=== PATIENT | female | born 1985 | race Caucasian/White ===

== ENCOUNTER 2024-04-27 08:28 | Emergency (ER) | payer MEDICAID, SELFPAY ==
[2024-04-27 08:32] VITALS: BP 116/71; PULSE 87; RESP 20; TEMP 36.7; O2SAT 99; BMI 32.9
--- NOTE | 2024-04-27 09:12 | ED.GENADULT ---
HPI - General Adult General Date Seen: 04/27/24 Chief complaint: Skin/Abscess/Foreign Body Stated complaint: R index finger infection Time Seen by Provider: 04/27/24 09:09 History of Present Illness HPI narrative: 39-year-old female presenting to the ER today with her mother (withdraw over and). She has a past medical history of anxiety, also history of carpal tunnel and cubital tunnel syndrome with surgery last year and physical therapy ongoing for the past year so. 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 She presents to the ER today for pain and redness and swelling involving her finger tip of her right hand, index finger. It 1st started getting red and swollen on the radial side of the finger pad about 7 days ago on Sunday. Since then it has been getting progressively worse. She went to the emergency department in [place] overnight last night because he was getting swollen. Although the swelling started on the radial side of the finger and spread upwards to be adjacent to the fingernail, it did not start there. Her doctor at the [place] ER did an x-ray that was reported as normal. No fracture. No signs of osteomyelitis. Suspecting a paronychia her doctor tried to do a needle aspiration. It was very painful for her because the finger was not anesthetized. They did not get any pus out. She received a dose of clindamycin at about 12 30 last night before she was discharged and was given a prescription for clindamycin 3 times daily for 7 days. She came to the ER here in [place] today because she feels like her finger is now increasingly red and more painful. She is not sure if the increasing redness is just because of the multiple needle sticks from the ER last night or if it is a sign of worsening infection. She does have some pain radiating up her finger toward her hand and forearm but no redness radiating up the finger or hand. She has had some chills but no fever. She is not diabetic or immunosuppressed. She does not recall any specific trauma or blunt injury. She has no history of blisters on the finger. She works as a hairdresser. Related Data Home Medications ?Medication ?Instructions ?Recorded ?Confirmed dextroamphetamine-amphetamine 15 1 tab PO DAILY 04/27/24 04/27/24 mg tablet dextroamphetamine-amphetamine 20 1 tab PO DAILY 04/27/24 04/27/24 mg tablet gabapentin 100 mg capsule 100 mg PO 3XD 04/27/24 04/27/24 levothyroxine 112 mcg capsule 112 mcg PO 04/27/24 (Tirosint) levothyroxine 125 mcg capsule 125 mcg PO .once a week 04/27/24 04/27/24 (Tirosint) Allergies Allergy/AdvReac Type Severity Reaction Status Date / Time cephalexin (From Keflex) Allergy Mild Vomiting Verified 04/27/24 08:53 PFSH PFS Social History Smoking Status: Current every day smoker What tobacco products do you use: cigarettes Smoking packs per day: 0.25 Smoking cigarettes per day: 5.0 How often do you have a drink containing alcohol: never AUDIT-C Alcohol total score: 0 Non-prescribed substance use: denies use service: No Exam Narrative: Exam Narrative: Constitutional: Appears well-developed and well-nourished. Active. Non-toxic appearing. Polite but Anxious and very worried about potential shots or needle pokes. HENT: Head: Atraumatic. No signs of injury. Nose: No nasal discharge. Mouth/Throat: Mucous membranes are moist. Pharynx is normal. Tonsils symmetric. Uvula midline. Airway patent. Eyes: Conjunctivae normal and EOM are normal. Pupils are equal, round, and reactive to light. Right eye exhibits no discharge. Left eye exhibits no discharge. No icterus. Neck: Normal range of motion. Neck supple. No adenopathy. No stridor. Cardiovascular: Normal rate and regular rhythm. No murmur heard. No murmurs, rubs, or gallops. Brisk capillary refill Pulmonary/Chest: Effort normal. No stridor. No respiratory distress. No wheezes.No rhonchi. No rales. No retractions. Abdominal: Soft. Bowel sounds are normal. No distension. No mass. There is no tenderness. There is no rebound and no guarding. Musculoskeletal: Normal except for her right hand index finger (2nd digit). She has swelling of the right hand index finger affecting the radial half of the finger pad, the radial side of the distal phalanges and the radial side and proximal radial side of the fingernail plate. Suspicious for either a cellulitis, felon, or possibly paronychia. However given the history provided that the redness and swelling actually started on the lateral side of the finger pulp, we feel that paronychia is less likely. Her finger is slightly swollen but she does have flexion and extension of the D IP, MCP, PIP. Intact radial and ulnar nerve sensory function. There is erythema with possible fluctuance affecting lateral side of the finger at the proximal quadrant of the are radial side of the fingernail plate. There is no blisters. Ulnar side of the finger looks okay. She does not have signs of flexor tenosynovitis. Neurological: Alert. Normal strength. No cranial nerve deficit or sensory deficit. Coordination normal. GCS eye subscore is 4. GCS verbal subscore is 5. GCS motor subscore is 6. Skin: Skin is warm. No rash noted. Const: Vital Signs, click to edit/add: Vital Signs - 24 hr 04/27/24 08:32 Temperature 98.1 F Pulse Rate [Pulse Oximeter] 87 Respiratory Rate 20 Blood Pressure [Ri ght Upper Arm] 116/71 Pulse Oximetry 99 Oxygen Delivery Me thod Room Air Course Course ED Course: Discussed the differential with the patient including finger cellulitis, herpetic stanislaw, felon (which is an abscess of the finger pad) or possible paronychia. We discussed that it varying treatments for each of these conditions. Based on the amount of swelling in her finger pad I am concerned about a felon. Cannot be ruled out without at least aspiration or better yet incision and drainage. However she/we do not want to further traumatize her finger. She agreed to attempt aspiration but of no pus is drained, she would not want and empiric incision. She was anxious about needles. We administered Ativan p.o.. After Ativan we performed a digital block Procedure: Digital block Indication, distal finger infection, needs aspiration Sterile prep using iodine. Using a 27 gauge 1/2 inch needle from a volar approach we infiltrated 2.5 mL of 0.25% bupivacaine without epinephrine. Partial anesthesia was achieved of the volar portion of the finger and part of the dorsal but a little bit of the dorsal finger was still painful. We then infiltrated 2 more mL of 0.25% bupivacaine to get the radial and ulnar dorsal digital nerves. Patient tolerated the injection well. Good anesthesia was achieved. Procedure: Aspiration of potential abscess Using an 18 gauge needle and sterile technique after Betadine prep we attempted to aspirate the area of swelling on the dorsal aspect of the finger adjacent to the radial side of the fingernail plate. We did not obtain any purulent drainage. We then also attempted to aspirate using a lateral approach to get into the finger pad. Again no purulent drainage was achieved. With no purulent aspirate, we did not proceed with incision and drainage. Vital Signs Vital signs: Initial Vital Signs Temperature 98.1 F 04/27/24 08:32 Temperature Source Temporal Artery Scan 04/27/24 08:32 Pulse Rate 87 04/27/24 08:32 Respiratory Rate 20 04/27/24 08:32 Blood Pressure 116/71 04/27/24 08:32 Blood Pressure Mean 86 04/27/24 08:32 Blood Pressure Position Sitting 04/27/24 08:32 Pulse Oximetry 99 04/27/24 08:32 Oxygen Delivery Method Room Air 04/27/24 08:32 Vital Signs Temperature 98.1 F 04/27/24 08:32 Pulse Rate 87 04/27/24 08:32 Respiratory Rate 20 04/27/24 08:32 Blood Pressure 116/71 04/27/24 08:32 Pulse Oximetry 99 04/27/24 08:32 Oxygen Delivery Method Room Air 04/27/24 08:32 Temperature 98.1 F 04/27/24 08:32 Pulse Rate 87 04/27/24 08:32 Respiratory Rate 20 04/27/24 08:32 Blood Pressure 116/71 04/27/24 08:32 Pulse Oximetry 99 04/27/24 08:32 Oxygen Delivery Method Room Air 04/27/24 08:32 Medications Administered Medications: Discontinued Medications Generic Name Dose Route Start Last Admin Trade Name Freq PRN Reason Stop Dose Admin Bupivacaine HCl 30 ml 04/27/24 09:36 04/27/24 09:48 Bupivacaine 0.25% 30 Ml INJECTION 04/27/24 09:37 30 ml ONCE ONE Administration Lorazepam 1 mg 04/27/24 09:36 04/27/24 09:41 Lorazepam 1 Mg Tablet PO 04/27/24 09:37 1 mg ONCE ONE Administration Medical Decision Making MDM Narrative Medical decision making narrative: Generally healthy 39-year-old female presenting to the ER today with redness and swelling affecting her right hand index finger especially the finger pad on the radial side of the distal phalanges. She has no history of trauma to suggest fracture and had x-rays last night done in a different ER that were negative for fracture foreign body. Presentation here is concerning for infection. There is no blisters to suggest herpetic stanislaw. Differential would also include finger cellulitis, felon, paronychia. After good digital block with appropriate anesthesia, we attempted attempted aspiration and achieve no purulent drainage. This point will not proceed with I and D. Have the patient continue on her clindamycin to treat for possible cellulitis and monitor carefully. Bacitracin and dressing applied. Precautions for return to the ER reviewed. Questions answered With patient and mother. Prescription through [facility] for oxycodone-10 tablets. Opiate and sedation precautions reviewed. Discharge Plan Discharge Clinical Impression: Cellulitis Patient Disposition: Home, Self-Care Condition: Stable Instructions: Cellulitis (ED) Additional Instructions: As we discussed, please fill your prescription for clindamycin from the [place] ER and start taking it as soon as possible. Take it 3 times daily for a week, as prescribed. Monitor your finger. If you have increasing swelling, spreading redness, if he develops high fevers, or have any concerns, please recheck with your doctor or come back to the emergency department right away. Please try to keep the finger covered with antibiotic ointment and a dressing. He has the prescription pain killer, oxycodone, if needed. Be careful with oxycodone because it causes dizziness, drowsiness, and can cause constipation. Oxycodone can be addictive. Do not drive or operate machinery for 6 hours after taking oxycodone. Prescriptions: No Action levothyroxine [Tirosint] 125 mcg capsule 125 mcg PO .once a week dextroamphetamine-amphetamine 20 mg tablet 1 tab PO DAILY dextroamphetamine-amphetamine 15 mg tablet 1 tab PO DAILY gabapentin 100 mg capsule 100 mg PO 3XD levothyroxine [Tirosint] 112 mcg capsule 112 mcg PO Follow Up/Referrals: Susu Chand DO [Primary Care Provider] - Stand Alone Forms: [facility] Info Instructions
[2024-04-27] MEDS: LORazepam 1 MG TABLET PO (09:41)
[2024-04-27] MEDS: BUPIVACAINE 0.25% 30 ML INJECTION (09:48)
== END 2024-04-27 11:40 | disposition home or self-care (01) ==
PROVIDERS: Emergency Provider Emergency Medicine; PCP Family Medicine
DX: L03.011 Cellulitis of right finger (principal)
CPT/HCPCS: 99283; A9270; J0665